=== PATIENT | male | born 2000 | race Caucasian/White ===

== ENCOUNTER 2022-12-11 20:15 | Emergency (ER) | payer SELFPAY ==
[~2022-12-11] VITALS: Ht 162.6 cm; Wt 56.7 kg
[2022-12-11 23:15] VITALS: BP 151/75
[2022-12-11] MEDS ORDERED: AMOCLA875 PO (23:28)
== END 2022-12-11 23:40 | disposition home or self-care (01) ==
LOC: ER 20:15
DX: S41.142A Puncture wound with foreign body of left upper arm, initial encounter (principal); W34.00XA Accidental discharge from unspecified firearms or gun, initial encounter; Z23 Encounter for immunization
CPT/HCPCS: 73060; 73206; 90471; 90715; 99285-25; A9270; Q9967